=== PATIENT | female | born 1945 | race Caucasian/White ===

== ENCOUNTER 2023-07-16 09:01 | Day surgery (SDC) | payer MEDICARE, BC ==
[~2023-07-16] VITALS: Ht 167.6 cm; Wt 76.4 kg
[~2023-07-16 09:01] MED LIST: Acetaminophen325 M1; FINA5 PO; GLUCHON PO; MINO2.5 PO; OMEP20ER PO; Prednisone20 MG PO; SERTRALINE HCL150 M1 PO
--- NOTE | 2023-07-16 11:30 | NUR ---
07/16/23 1130 Leslye Jaime 8CC NACL USED FOR POLYPECTOMY BY . OPA WAS PLACED DURING COLONOSCOPY D/T SNORING
[2023-07-16 12:06] VITALS: BP 129/68
--- NOTE | 2023-07-16 12:08 | NUR ---
07/16/23 1208 Susan Thompson IV DC'D, CATH INTACT. PT TOLERATED WELL. COBAN/GAUZE IN PLACE
== END 2023-07-16 12:08 | disposition home or self-care (01) ==
LOC: ORSCSDS 09:01
PROVIDERS: Internal Medicine Gastroenterology
PROC: 0D758ZZ Dilation of Esophagus, Via Natural or Artificial Opening Endoscopic (ICD-10-PCS; principal; 2023-07-16 10:15)
PROC: 0DBH8ZX Excision of Cecum, Via Natural or Artificial Opening Endoscopic, Diagnostic (ICD-10-PCS; principal; 2023-07-16 10:15)
DX: K21.9 Gastro-esophageal reflux disease without esophagitis (principal); Z12.11 Encounter for screening for malignant neoplasm of colon; Z86.010 Personal history of colon polyps; R13.10 Dysphagia, unspecified; D12.0 Benign neoplasm of cecum; K44.9 Diaphragmatic hernia without obstruction or gangrene; K57.30 Diverticulosis of large intestine without perforation or abscess without bleeding; K64.8 Other hemorrhoids; I10 Essential (primary) hypertension; G47.33 Obstructive sleep apnea (adult) (pediatric); F03.90 Unspecified dementia, unspecified severity, without behavioral disturbance, psychotic disturbance, mood disturbance, and anxiety; F33.9 Major depressive disorder, recurrent, unspecified; Z85.828 Personal history of other malignant neoplasm of skin; Z79.899 Other long term (current) drug therapy
CPT/HCPCS: 88305; J2001; J2704; J7120

== ENCOUNTER 2023-07-21 08:26 | Day surgery (SDC) | payer OTHER, BC ==
[~2023-07-21] VITALS: Ht 165.1 cm; Wt 76.0 kg
[2023-07-21] VITALS (17 sets, daily range): BP systolic 118–1334; BP diastolic 62–710
--- NOTE | 2023-07-21 08:49 | NUR ---
PHENTERMINE AND MEPERIDINE REMOVED FROM ALLERGY LIST PER PATIENT REQUEST. DENIES ALLERGY/ADVERSE REACTION.
--- NOTE | 2023-07-21 14:15 | NUR ---
ARRIVAL TO SURGICAL UNIT VIA HOSPITAL BED. ALERT & PLEASANT. ASSESSMENT CHARTED. DENIES N/V. SNACKS & WATER GIVEN, BUT REPORTS NOT MUCH OF AN APPETITE.
--- NOTE | 2023-07-21 19:41 | NUR ---
SHIFT SUMMARY PT WAS NOT ABLE TO WORK w/ THERAPY. SPINAL WORE OFF AROUND 1830. WAS ABLE TO GET UP TO USE BATHROOM AT THAT TIME, BUT DECLINED UP TO CHAIR. EATING, DRINKING, & VOIDING. IS WORRIED ABOUT PAIN MANAGEMENT.
[2023-07-22 03:26] VITALS: BP 150/74
--- NOTE | 2023-07-22 04:46 | NUR ---
SHIFT SUMMARY POD 1 R TKA PT ABLE TO SLEEP T/O NIGHT. TOLERATING PO INTAKE, VOIDING. WALKING TO THE BATHROOM, SBA, WALKER AND GAIT BELT. PAIN MANAGED PER EMAR. PIO AND AQUACEL TO R KNEE C.D.I. VSS. NO OTHER CONCERNS AT THIS TIME. CALL LIGHT WITHIN REACH
[2023-07-22 06:32] LABS: BASOPHILS ABSOLUTE AUTO 0.03 K/mm3 (0.00-0.23); BASOPHILS PERCENT AUTO 0 % (0-2); EOSINOPHILS ABSOLUTE AUTO 0.03 K/mm3 (0.00-0.68); EOSINOPHILS PERCENT AUTO 0 % (0-6); Hematocrit 34.6 % (33.0-51.0); Hemoglobin 11.4 g/dL (11.5-16.0); IMMATURE GRAN ABSOLUTE AUTO 0.04 K/mm3 (0.00-0.10); IMMATURE GRAN PERCENT AUTO 0 % (0-1); LYMPHOCYTES ABSOLUTE AUTO 2.26 K/mm3 (0.84-5.20); LYMPHOCYTES PERCENT AUTO 17 % (21-46); MONOCYTES ABSOLUTE AUTO 1.29 K/mm3 (0.16-1.47); MONOCYTES PERCENT AUTO 9 % (4-13); Mean Corpuscular HGB 31.3 pg (26.0-34.0); Mean Corpuscular HGB Conc 32.9 g/dL (31.5-36.5); Mean Corpuscular Volume 95 fL (80-100); Mean Platelet Volume 9.1 fL (9.1-12.4); NEUTROPHILS ABSOLUTE AUTO 10.08 K/mm3 (1.96-9.15); NEUTROPHILS PERCENT AUTO 73 % (41-73); Platelet Count 371 K/mm3 (150-400); RDW Coefficient Variation 11.9 % (11.7-14.2); RDW Standard Deviation 41.5 fL (35.1-46.3); Red Blood Cell Count 3.64 M/mm3 (3.80-5.20); White Blood Cell Count 13.73 K/mm3 (4.00-11.30)
[2023-07-22 07:12] LABS: Bun/Creatinine Ratio 25.7 (12.0-20.0); Creatinine, Blood 0.54 mg/dL (0.40-1.00); Potassium, Blood 3.9 mmol/L (3.5-5.5)
[2023-07-22 07:14] VITALS: BP 165/72
[2023-07-22] MEDS ORDERED: Percocet 5-3251 EACH PO (10:07)
[2023-07-22] MEDS ORDERED: ASPI81CH PO (10:07)
--- NOTE | 2023-07-22 10:25 | NUR ---
DISCHARGE PT HAS CLEARED THERAPY. PAIN WELL CONTROLLED. EATING, DRINKING, & VOIDING WELL. DRSGS, SCRIPT, & POLAR PACK SENT w/ PT. ESCORTED OUT VIA W/C.
--- NOTE | 2023-07-23 11:54 | NUR ---
07/23/23 1154 Leila Orantes VERIFICATIONS: EDIT CHART.
== END 2023-07-22 10:25 | disposition home or self-care (01) ==
LOC: ORSCMMR 08:26 → ORD 10:00 → ORSCMMR 10:00 → SURS 13:58 → ORSCMMR 07-22 10:25
PROVIDERS: Orthopaedic Surgery
PROC: 0SRC0JA Replacement of Right Knee Joint with Synthetic Substitute, Uncemented, Open Approach (ICD-10-PCS; principal; 2023-07-21 10:00)
DX: M17.11 Unilateral primary osteoarthritis, right knee (principal); Z96.642 Presence of left artificial hip joint; I10 Essential (primary) hypertension; G47.33 Obstructive sleep apnea (adult) (pediatric); K21.9 Gastro-esophageal reflux disease without esophagitis; Z79.899 Other long term (current) drug therapy
CPT/HCPCS: 36415; 73560-RT; 80048; 82435; 84132; 84295; 85025; 94760; 97110; 97162; A9270; C1776; J0171; J0690; J0735; J1100; J1885; J2405; J2704; J2795; J3010; J7120